=== PATIENT | female | born 1980 | race Caucasian/White ===

== ENCOUNTER 2016-09-03 15:40 | Emergency (ER) | payer BC, MEDICAID ==
[~2016-09-03] VITALS: Ht 162.6 cm; Wt 61.2 kg
[~2016-09-03 15:40] MED LIST: DOCU-30 PO; FERR325T10 PO; IBUP-1222 PO
[2016-09-03] MEDS ORDERED: CITA20TA5 PO (16:24)
[2016-09-03] MEDS ORDERED: BUPR1FIL3 SL (16:24)
[2016-09-03 17:50] VITALS: BP 98/48
== END 2016-09-03 17:53 | disposition home or self-care (01) ==
LOC: ED 16:49
DX: S20.211A Contusion of right front wall of thorax, initial encounter (principal); W01.0XXA Fall on same level from slipping, tripping and stumbling without subsequent striking against object, initial encounter; Y93.01 Activity, walking, marching and hiking; Y99.8 Other external cause status; Y92.009 Unspecified place in unspecified non-institutional (private) residence as the place of occurrence of the external cause

== ENCOUNTER 2016-10-15 15:14 | Emergency (ER) | payer BC ==
[~2016-10-15] VITALS: Ht 162.6 cm; Wt 59.0 kg
[~2016-10-15 15:14] MED LIST changes: +BUPR1FIL3 SL; +CITA20TA5 PO
[2016-10-15] MEDS ORDERED: SODIUM CHLORIDE 0.9% 1,000 ML IV ONE (15:31)
[2016-10-15] MEDS ORDERED: BUPR1FIL3 SL (15:34)
[2016-10-15] MEDS ORDERED: LORazepam 2 MG/ML, 1ML ONE (15:36)
[2016-10-15] MEDS ORDERED: LORazepam 2 MG/ML, 1ML IVPush ONE (16:00)
[2016-10-15 16:16] LABS: ASPARTATE AMINO TRANSFERASE 20 U/L (15-37); BLOOD UREA NITROGEN 17 mg/dL (7-18)
[2016-10-15 16:25] LABS: DAU SCREEN DISCLAIMER
[2016-10-15 17:54] VITALS: BP 122/81
== END 2016-10-15 18:20 | disposition home or self-care (01) ==
LOC: ED 17:40
DX: R56.9 Unspecified convulsions (principal); F19.10 Other psychoactive substance abuse, uncomplicated
CPT/HCPCS: 36415; 70450; 71010; 80053; 80307; 85025; 85610; 93005; 96361; 96374; 99285; J2060; J7030

== ENCOUNTER 2019-12-22 19:53 | Emergency (ER) | payer BC, MEDICAID ==
[~2019-12-22] VITALS: Ht 162.6 cm; Wt 63.8 kg
[~2019-12-22 19:53] MED LIST changes: -CITA20TA5 PO; +CITA20TA6 PO; +DOCU-131 PO; -DOCU-30 PO; -FERR325T10 PO; +FERR325T17 PO
--- NOTE | 2019-12-22 21:21 | NUR ---
pt to room from lobby
[2019-12-22] MEDS ORDERED: LIDOCAINE-MPF 1%, 5ML INFIL ONE (21:30)
[2019-12-22] MEDS ORDERED: LIDOCAINE-MPF 1%, 5ML ONE ×2 (21:34→22:52)
[2019-12-23 00:03] VITALS: BP 111/84
== END 2019-12-23 00:05 | disposition home or self-care (01) ==
LOC: ED 23:30
DX: L02.31 Cutaneous abscess of buttock (principal); F17.210 Nicotine dependence, cigarettes, uncomplicated; G89.29 Other chronic pain
CPT/HCPCS: 10061; 99284; 99406

== ENCOUNTER 2020-05-23 20:34 | Emergency (ER) | payer MEDICAID ==
[~2020-05-23] VITALS: Ht 162.6 cm; Wt 70.9 kg
--- NOTE | 2020-05-23 21:00 | NUR ---
PATIENT RESTING IN BED IN NAD. L BUTTOCK CYST NOT OPEN BUT FIRM AND TENDER TO TOUCH. DISCOLORATION SCARRING TO AREA. QUARTER SIZE. PATIETN ALSO STATING THAT SHE HAS SOME CRAMPING AND BLEEDING HEAVIER THAN NORMAL AND IS REQUEST PREG TEST. OBTAINING URINE SAMPLE AND I HAVE TOLD HER TO ASK THIS TO THE PROVIDER ONCE SHE IS SEEN. WILL CONTINUE TO MONITOR.
[2020-05-23] MEDS ORDERED: LIDOCAINE-MPF 2% ,5ML ONE ×3 (21:15→21:19)
[2020-05-23] MEDS ORDERED: IBUPROFEN 600 MG TABLET ONE (21:23)
[2020-05-23] MEDS ORDERED: LIDOCAINE 2%, 20ML SQ ONE (21:30)
[2020-05-23] MEDS ORDERED: IBUPROFEN 600 MG TABLET PO ONE (21:30)
[2020-05-23 21:34] LABS: BASOPHILS % (AUTO) 1 % (0-1); EOSINOPHILS % (AUTO) 1 % (1-7); LYMPHOCYTES % (AUTO) 44 % (22-44); MEAN CORPUSCULAR HGB CONC 34.6 g/dL (32.4-35.8); MEAN PLATELET VOLUME 7.9 fL (7.4-10.4); MONOCYTES % (AUTO) 8 % (2-9); NEUTROPHILS % (AUTO) 46 % (42-75); PLATELET COUNT 296 x10^3/uL (130-400); RED BLOOD COUNT 4.23 x10^6/uL (3.82-5.3); RED CELL DISTRIBUTION WIDTH 13.9 % (9.6-15.2)
[2020-05-23 21:35] LABS: MD NO
[2020-05-23 21:46] LABS: ALBUMIN 3.8 g/dL (3.4-5.0); ANION GAP 5 mmol/L (5-15); CALCIUM 8.6 mg/dL (8.5-10.1); CHLORIDE 108 mmol/L (98-107)
--- NOTE | 2020-05-23 22:00 | NUR ---
patient resting in bed in NAD. will continue to monitor.
--- NOTE | 2020-05-23 22:41 | NUR ---
at bedside for I&D
--- NOTE | 2020-05-23 23:46 | NUR ---
discharge instructions reviewed with patient. L gluteus dressign changed prior to dc d/t bleeding. bleeding minimal during dressing being changed but prior dressing saturated. patient ambulatory to reg. desk. steady gait. all personal belongings with patient. extra supplied provided to patient for dressing changes at home.
[2020-05-23 23:47] VITALS: BP 129/76
== END 2020-05-23 23:49 | disposition home or self-care (01) ==
LOC: ED 23:14
DX: L02.31 Cutaneous abscess of buttock (principal); N93.8 Other specified abnormal uterine and vaginal bleeding; R93.41 Abnormal radiologic findings on diagnostic imaging of renal pelvis, ureter, or bladder
CPT/HCPCS: 10060; 36415; 76830; 80048; 82040; 84703; 85025; 87070; 87205; 99284; J3490

== ENCOUNTER 2020-05-26 12:21 | Emergency (ER) | payer MEDICAID ==
[~2020-05-26] VITALS: Ht 162.6 cm; Wt 71.0 kg
[2020-05-26 12:24] VITALS: BP 136/64
== END 2020-05-26 13:23 | disposition home or self-care (01) ==
LOC: ED 12:41
DX: L02.31 Cutaneous abscess of buttock (principal)
CPT/HCPCS: 99281

== ENCOUNTER 2020-05-28 10:14 | Emergency (ER) | payer MEDICAID ==
[~2020-05-28] VITALS: Ht 162.6 cm; Wt 71.1 kg
[2020-05-28 10:20] VITALS: BP 104/77
--- NOTE | 2020-05-28 10:27 | NUR ---
DR RODRIGUEZ AT FOR EXAM. PT STATES SHE THINKS PACKING IS ABOUT TO COME OUT. PACKING REMOVED FROM LT BUTTOCK AREA PER DR RODRIGUEZ. SITZ BATH PROCEDURE DISCUSSED W/ PT PER DR RODRIGUEZ; PT VERBALIZED UNDERSTANDING.
[2020-05-28] MEDS ORDERED: SULF1TAB24 PO (10:34)
[2020-05-28] MEDS ORDERED: CEPH-376 PO (10:34)
== END 2020-05-28 10:52 | disposition home or self-care (01) ==
LOC: ED 10:36
DX: L02.31 Cutaneous abscess of buttock (principal)
CPT/HCPCS: 99281

== ENCOUNTER 2020-06-14 13:36 | Emergency (ER) | payer MEDICAID ==
[~2020-06-14] VITALS: Ht 162.6 cm; Wt 71.8 kg
[~2020-06-14 13:36] MED LIST changes: +CEPH-376 PO; +SULF1TAB24 PO
--- NOTE | 2020-06-14 13:56 | NUR ---
PT COMES IN C/O LEFT BUTTOCK TENDERNESS/FIRMNESS/REDNESS. PT STATES SHE WAS SEEN HERE APPROX 3WKS AGO FOR A LEFT BUTTOCK ABSCESS W/ I&D. PT STATES "I WAS GIVEN 2 DIFFERENT KINDS OF ANTIBIOTICS WHICH I FINISHED BOTH. IT FELT BETTER FOR AWHILE AND NOW I HAVE PAIN AGAIN. I CANT LAY ON MY BACK AND IT WAKES ME UP AT NIGHT IF I ACCIDENTALLY ROLL ON IT". PT STATES 0/10, BUT INTERMITTENT PAIN "LIKE OUT OF NOWHERE IT WILL JUST RANDOMLY START HURTING". MONITORS CONNECTED. WARM BLANKET PROVIDED. CALL LIGHT W/IN REACH
--- NOTE | 2020-06-14 14:10 | NUR ---
PROVIDER AT BEDSIDE FOR ASSESSMENT AND TO DISCUSS PLAN OF CARE
--- NOTE | 2020-06-14 14:19 | NUR ---
PROVIDER AT BEDSIDE FOR BEDSIDE ULTRASOUND
--- NOTE | 2020-06-14 14:32 | NUR ---
MD AND PA AT BEDSIDE FOR ASSESSMENT AND ULTRASOUND. PT QUESTIONS ANSWERED. PLAN OF CARE AND DISCHARGE DISCUSSED.
[2020-06-14 14:33] VITALS: BP 107/56
--- NOTE | 2020-06-14 14:34 | NUR ---
PT UP TO BEDSIDE TO GET DRESSED. AMBULATED TO BATHROOM W/STEADY GAIT. AWAITING D/C PAPERWORK.
--- NOTE | 2020-06-14 14:43 | NUR ---
TASK RN: Patient/Caregiver given discharge instructions and they have confirmed that they understand the instructions. Patient ambulatory with steady gait.
== END 2020-06-14 15:02 | disposition home or self-care (01) ==
LOC: ED 14:45
DX: L02.31 Cutaneous abscess of buttock (principal); Z48.01 Encounter for change or removal of surgical wound dressing
CPT/HCPCS: 99281; 99284

== ENCOUNTER 2021-01-07 12:19 | Emergency (ER) | payer MEDICAID ==
[~2021-01-07] VITALS: Ht 162.6 cm; Wt 73.9 kg
[~2021-01-07 12:19] MED LIST changes: +SULF-23 PO; -SULF1TAB24 PO
[2021-01-07 12:54] VITALS: BP 126/61
[2021-01-07 13:19] LABS: MICROSCOPIC NOT IND
[2021-01-07 13:34] LABS: BASOPHILS % (AUTO) 1 % (0-1); EOSINOPHILS % (AUTO) 0 % (1-7); LYMPHOCYTES % (AUTO) 30 % (22-44); MEAN CORPUSCULAR HEMOGLOBIN 30.8 pg (27.0-34.8); MEAN PLATELET VOLUME 8.7 fL (7.4-10.4); MONOCYTES % (AUTO) 6 % (2-9); NEUTROPHILS % (AUTO) 64 % (42-75); PLATELET COUNT 291 x10^3/uL (130-400); RED CELL DISTRIBUTION WIDTH 13.2 % (9.6-15.2)
[2021-01-07 13:41] LABS: ALANINE AMINOTRANSFERASE 28 U/L (12-78); ALBUMIN 3.5 g/dL (3.4-5.0); ANION GAP 4 mmol/L (5-15); CALCIUM 8.8 mg/dL (8.5-10.1); CHLORIDE 109 mmol/L (98-107)
[2021-01-07 13:46] LABS: ALKALINE PHOSPHATASE 53 U/L (45-117); BILIRUBIN,TOTAL 0.3 mg/dL (0.2-1.0); CREATININE 0.83 mg/dL (0.55-1.02); TOTAL PROTEIN 8.1 g/dL (6.4-8.2)
--- NOTE | 2021-01-07 16:53 | NUR ---
PT PULLED FROM LOBBY TO TRIAGE 2 TO DC. DC INSTRUCTIONS DISCUSSED WITH PT. PT VERBALIZED UNDERSTANDING. DENIES FURTHER NEEDS AT THIS TIME. AMBULATORY TO CHECKOUT C STEADY GAIT.
== END 2021-01-07 16:56 | disposition home or self-care (01) ==
LOC: ED 16:49
DX: K57.32 Diverticulitis of large intestine without perforation or abscess without bleeding (principal); M54.5 Low back pain; R19.7 Diarrhea, unspecified
CPT/HCPCS: 36415; 80053; 81003; 83690; 84703; 85025; 99283